=== PATIENT | female | born 1960 | race Caucasian/White ===

== ENCOUNTER 2023-10-23 15:56 | Emergency (ER) | payer OTHER, SELFPAY ==
[2023-10-23 16:02] VITALS: BP 183/109
[2023-10-23 16:33] LABS: % Basophils 0.3 % (0-2); % Immature Granulocytes 0.7 % (0-0.5); % Lymphocytes 3.7 % (20.5-51.1); % Monocytes 1.8 % (1.7-9.3); % Neutrophils 93.5 % (42.2-75.2); Absolute Immature Granulocytes 0.1 10^3/uL (0-0.05); Absolute Lymphocytes 0.4 10^3/uL (1.2-3.4); Absolute Monocytes 0.2 10^3/uL (0.1-0.6); Absolute Neutrophils 10.7 10^3/uL (1.4-6.5); Hematocrit 38.5 % (37.0-47.0); Mean Corp Hgb Conc. 33.8 g/dL (33.0-37.0); Mean Corpuscular Hgb 28.7 pg (27.0-31.0); Mean Platelet Volume 10.5 fL (7.4-10.4); Nucleated Red Blood Cells % 0 %; Platelet Count 286 10^3/uL (130-400); Red Blood Cell Count 4.53 10^6/uL (4.20-5.40); White Blood Cell Count 11.5 10^3/uL (4.8-10.8)
[2023-10-23 16:44] LABS: ALT (SGPT) 24 U/L (0-35); AST (SGOT) 25 U/L (14-36); Albumin 4.7 g/dl (3.5-5.0); Alkaline Phosphatase 170 U/L (38-126); Blood Urea Nitrogen 26 mg/dl (7-17); COVID-19 Antigen Negative (Negative); Calcium 9.9 mg/dl (8.4-10.2); Carbon Dioxide 21 mmol/L (22-30); Chloride 106 mmol/L (98-107); Glucose 244 mg/dl (70-99); Lipase 62 U/L (23-300); Potassium 4.3 mmol/L (3.5-5.1); Sodium 137 mmol/L (135-145); Total Bilirubin 1.6 mg/dl (0.2-1.3); Total Protein 7.8 g/dl (6.3-8.2); eGFR > 60.00
[2023-10-23 16:55] LABS: Troponin I < 0.012 ng/ml
[2023-10-23 18:23] VITALS: BP 184/110
[2023-10-23] MEDS: NSS 1000 IV (18:24)
[2023-10-23] MEDS: REGLAN 10 MG IV (18:25)
[2023-10-23] MEDS: OFIRMEV 100 IV (18:25)
--- NOTE | 2023-10-23 18:30 | ED.GENMED ---
History of Present Illness
General
Chief Complaint: Abdominal Symptoms
Source: patient
Exam Limitations: none
Time Seen by Provider: 10/23/23 17:55
Travel History
Have you had any contact with someone who has COVID-19?: No
Do you have any symptoms of coronavirus? Fever > 100 degrees, chills, cough, shortness of breath, sore throat, loss of taste or smell, muscle aches, or headache?: No
History of Present Illness
History of Present Illness:
This is a 63 year old female that comes in with c/o vomiting and diarrhea. State that this started at 2am with the vomiting and diarrhea yesterday. States that she is unable to keep anything down but was able to keep her antirejection medication
down this morning. States that she has some labored breathing and has abd cramping. States that she also has a headache. Denies any fever, chills, chest pain, dizziness, urinary burning.
Past History
Past History
ED Past Medical History: IDDM and [facility]
ED Past Surgical History: Cardiac (Heart transplant), Orthopedic (Foot surgery) and Urological (Kidney transplant)
Social History
Tobacco: Non-smoker
Alcohol: None
Personal: Single
Living: with family
Review of Systems
Review of Systems
All Other Systems: ROS reviewed and negative except as documented in HPI and ROS
Constitutional: Reports no symptoms; Denies fever or chills
EENT: Reports no symptoms
Respiratory: Reports trouble breathing; Denies cough
Cardiac: Denies chest pain
ABD/GI: Reports abdominal pain, nausea, vomiting and diarrhea
: Reports no symptoms; Denies dysuria, frequency or urgency
Musculoskeletal: Reports no symptoms
Skin: Reports no symptoms
Neurological: Reports headache; Denies dizzy
Psychiatric: Reports no symptoms
Phy Exam
General Physical Exam
General Presentation: no apparent distress
General age: appears stated age
General Skin: warm and dry
General Habitus: normal
General Mental: alert
General Hydration: dry mucous membranes
ENT Exam
ENT Exam: TM's normal, pharynx normal and neck supple
Eye Exam
Eye Exam: EOMI
Cardiovascular Exam
Cardiovascular Exam: regular rate/rhythm, no edema, no murmur and normal peripheral pulses
Pulmonary Exam
Pulmonary Exam: lungs clear, no respiratory distress, no rales, chest non tender, no crackles, no rhonchi, no wheezing and no cough
Gastrointestinal Exam
Gastrointestinal Exam: normal bowel sounds, non tender, soft, no organomegaly, no pulsatile mass and non distended
Musculoskeletal Exam
Musculoskeletal Exam: other (Long boat on left leg due to 2 weeks ago Achilles tendon repair)
Skin Exam
Skin Exam: normal color, warm/dry, no rash and no petechia
Psychiatric Exam
Psychiatric Exam: normal mood/affect
Course
Orders/Labs/Results
Orders:
Orders
10/23/23 16:06
Electrocardiogram (*1) Urgent
Reason for Study: Chest Pain
EKG- Treatment ONCE
10/23/23 16:19
COVID-19 Antigen Urgent
Source: Nasal Swab
Complete Blood Count/With Diff Urgent
Comprehensive Metabolic Panel Urgent
Lipase Urgent
Tacrolimus (Prograft - FK506) [S] Urgent
Troponin I Urgent
Influenza A+B Rapid Molecular Urgent
BHAVIN Source: Nasal Swab
Specimen Description:
10/23/23 18:06
0.9% Sodium Chloride 1000 ml [Nss] 1,000 ml IV BOLUS
Acetaminophen 1000MG/100Ml [Ofirmev] 1,000 mg in 100 ml IV ONCE
Acetaminophen IV Indication:: ED Narcotic Naive Pt-ONCE
Metoclopramide [Reglan] 10 mg IV NOW STA
10/23/23 18:30
Add On- LAB Urgent
Tests Added?: Tacrolinus level
10/23/23 18:33
Urinalysis Reflex To Culture Urgent
Abnormal Lab Results
10/23/23
16:19
WBC 11.5 H 10^3/uL
(4.8-10.8)
MPV 10.5 H fL
(7.4-10.4)
Abs Immat Gran (auto) 0.1 H 10^3/uL
(0-0.05)
Absolute Neuts (auto) 10.7 H 10^3/uL
(1.4-6.5)
Absolute Lymphs (auto) 0.4 L 10^3/uL
(1.2-3.4)
Immature Gran % 0.7 H %
(0-0.5)
Neutrophils % 93.5 H %
(42.2-75.2)
Lymphocytes % 3.7 L %
(20.5-51.1)
Carbon Dioxide 21 L mmol/L
(22-30)
BUN 26 H mg/dl
(7-17)
Glucose 244 H mg/dl
(70-99)
Total Bilirubin 1.6 H mg/dl
(0.2-1.3)
Alkaline Phosphatase 170 H U/L
(38-126)
10/23/23 16:19
10/23/23 16:19
WBC slightly elevated. Dehydration. Glucose nonfasting. Total victor hugo slightly elevated. Alk phos elevation. Troponin <0.012, Lipase normal at 62, COVID and influenza Negative.
Vital Signs
Initial and Last Documented VS:
Initial Vital Signs
Temp Pulse Resp BP Pulse Ox
97.8 F 115 16 183/109 100
10/23/23 16:02 10/23/23 16:02 10/23/23 16:02 10/23/23 16:02 10/23/23 16:02
Last Documented Vital Signs
Temp Pulse Resp BP Pulse Ox
97.8 F 114 16 184/110 100
10/23/23 16:02 10/23/23 18:23 10/23/23 18:23 10/23/23 18:23 10/23/23 18:23
MDM/Problems Addressed
Differential Diagnosis Includes:
GI viral syndrome.
MDM/Problems Addressed:
This is a 63 year old female that comes in with with c/o vomiting and diarrhea. States that she stated with this yesterday at 2am. States that she is concerned that she won't be able to keep her anti rejection drugs down.
Will check labs, Give IV fluids and antiemetic medications.
Back into see patient. Patient states that she is feeling much better. Explained that this is most likely the viral syndrome. Patient to stay on clear liquids for the next 24 hours. Stay away form milk and milk products until the diarrhea stops.
Will also give Prescription for Reglan. Explained to patient that she can also use Tylenol 1000mg every 6 hours for body aches. Patient to return with any concerns.
Chronic conditions affecting care:
KIdney and Heart transplant
Acute Exacerbation and/or Progression of Chronic Illness:
NA
*Pulse Oximetry
Patient hypoxic: no
*EKG
Interpreted by ED Provider?: Yes
Heart Rate: 112
Rate: tachycardiac
Rhythm: sinus and PVC's
[place]: left axis deviation
Interval: normal interval
QRS Pattern: normal QRS
Ischemia: no ischemia
*Critical Care Note
Total Time (30-74mins, 75-104mins- exclusive of procedures): Not Applicable
ED Attending Note
-
Portions of this chart may have been created with voice recognition software.� Occasional wrong word or��sound alike� substitutions may have occurred due to the inherent limitations of voice recognition software.
Discharge Plan
Departure
Patient Disposition: Home (Routine Discharge)
Date of Disposition: 10/23/23
Time of Disposition: 20:14
Patient with high blood pressure during this ER visit?: Yes
Condition: Good
Covid-19: Negative COVID-19
Discharge Problem:
Nausea & vomiting, Diarrhea
Instructions: Diarrhea in adolescents and adults, Nausea and Vomiting, Adult (DC), BLOOD PRESSURE
Prescriptions:
New
metoclopramide HCl [Reglan] 10 mg tablet
10 mg PO Q6H PRN (Reason: nausea and vomiting) Qty: 10 0RF
Referrals:
NONE,* [Family Provider] -
Activity Restrictions/Additional Instructions:
As discussed, your blood work shows some dehydrated. You have been given IV fluids here. This is most likely a Viral GI syndrome. Please stay away form milk and milk products until the diarrhea stops. Stay on a clear liquid diet for the next 24
hours. Increased your diet as tolerated. You have had a Prescription for Reglan sent to your Pharmacy. You may also use Tylenol 1000mg every 6 hours for body aches. Please follow up with the family doctor for recheck in the next 2-3 days. IF YOU
HAVE VOMITING THAT HIS NOT CONTROLLED, OR YOU HAVE ANY OTHER CONCERNS PLEASE RETURN TO THE EMERGENCY ROOM.
Interventions
Interventions:
*Risk Screen - Suicide Last Done: 10/23/23 16:02
*General Assessment Last Done: 10/23/23 16:02
*Neglect/Abuse Screening Last Done: 10/23/23 16:02
*ED COVID-19 Vaccine History Last Done: 10/23/23 16:02
[2023-10-23] MEDS: REGLAN 10 MG PO (20:43)
[2023-10-23 20:47] VITALS: BP 143/94
[2023-10-25 22:50] LABS: Tacrolimus (Prograft - FK506) 7.8 ng/mL
== END 2023-10-23 21:00 | disposition home or self-care (01) ==
LOC: EMR 15:56
PROVIDERS: Emergency Medicine; EMERGENCY PHYSICIAN Emergency Medicine
DX: R11.2 Nausea with vomiting, unspecified (principal); R19.7 Diarrhea, unspecified; R10.9 Unspecified abdominal pain; R51.9 Headache, unspecified; R03.0 Elevated blood-pressure reading, without diagnosis of hypertension; E86.0 Dehydration; E11.9 Type 2 diabetes mellitus without complications; I25.2 Old myocardial infarction; Z94.1 Heart transplant status; Z94.0 Kidney transplant status; Z88.1 Allergy status to other antibiotic agents; Z88.5 Allergy status to narcotic agent; Z11.52 Encounter for screening for COVID-19
CPT/HCPCS: 99284; 96374; 96375; 96361; 80053; 80197; 83690; 84484; 85025; 87502; 87811; 93005